=== PATIENT | female | born 1995 | race Caucasian/White ===

== ENCOUNTER 2022-12-12 23:03 | Inpatient (IN) | payer OTHER, SELFPAY ==
--- OUTSIDE RECORDS SUMMARY | 2022-12-12 23:05 | XMS_ITS | Continuity of Care Document ---
Author Name Unknown Organization [facility] ter Address [address] [place] [id number]- Care Team Providers Care Crab Backer Name Role Phone Antonio HOBSON, Ana Laura Flynn Primary Care Physician [phone] [place] [facility] [place] - 07/19/[address] [address]- [facility] Attending Physician: Hannah Concepcion MD Allergies, Adverse Reactions, Alerts Substance Reaction Severity Status NKA Active Immunizations Given and Recorded Vaccine Date Status Refusal Reason Measles/Mumps/Rubella Virus Vaccine 06/10/13 Given tetanus/diphtheria/pertussis, acel(Tdap) 1 05/09/13 Given influenza virus vaccine, inactivated 2 05/09/13 Gi cheryl 1Admin Note: NKA. Vis sheet given to pt. 2Admin Note: Flu Vaccine administered. Given information sheet. Denies any allergies or reaction to flu vaccine in the past. Medications Multivitamin Daily, 0 Refills, Maintenance, 10/15/17 15:47:41 EDT Start Date: 10/15/17 Status: Ordered Valtrex 500 mg oral tablet 500 mg, 1, tablet, By Mouth, Every 12 hours, # 14 tablet, Refills 0, Tot. Refills 0, Maintenance, 05/12/19 7:06:08 EST, Route to Pharmacy Electronically, [id number], [facility]/pharmacy #[id number] Start Date: 05/12/19 Stop Date: 05/19/19 Status: Ordered Problem List Condition Effective Dates Status Health Status Inform ant Contraception(Confirmed) Active Depression(Confirmed) Active Fatigue(Confirmed) Active Herpes simplex without complication(Confirmed) Active Well woman exam with routine gynecological exam(Confirmed) Active Results Microbiology Reports TEST:Group B Strep Culture STATUS:Auth (Verified) BODY SITE: SOURCE:VAGINO COLLECTED DATE/TIME:07/12/19 1:57 PM Group B Strep Culture SPECIMEN DESCRIPTION : VAGINORECTAL SWAB SPECIAL REQUESTS : NONE CULTURE : NO GROUP B BETA HEMOLYTIC STREPTOCOCCI ISOLATED REPORT STATUS : FINAL 07/18/2019 Social History Social History Type Response Smoking Status Former smoker entered on: 05/26/17 Sex
--- OUTSIDE RECORDS SUMMARY | 2022-12-12 23:05 | XMS_ITS | Continuity of Care Document ---
Author Name Unknown Organization [facility] ter Address [address] [place] [id number]- Care Team Providers Care Conduit Worker Name Role Phone Antonio HOBSON, Ana Laura Flynn Primary Care Physician [place] [facility] [place] [place] [id number] Date(s): 07/26/19 - 07/26/[address] [address]- [facility] Discharge Disposition: A-D/C Home Attending Physician: Annalise Romo DO Admitting Physician: Annalise Romo DO Referring Physician: Annalise Romo DO Allergies, Adverse Reactions, Alerts Substance Reaction Severity [...] to flu vaccine in the past. Medications ferrous sulfate 325 mg oral tablet 1 tablet = 325 mg, By Mouth, 3 times a day, 0 Refills, Maintenance, 07/26/19 20:00:00 EST Start Date: 07/26/19 Status: Ordered Multivitamin Daily, 0 Refills, Maintenance, 10/15/17 15:47:41 EDT Start Date: 10/15/17 Status: Ordered Valtrex 500 mg oral tablet 500 mg, 1, tablet, By Mouth, Every 12 hours, # 14 tablet, Refills 0, Tot. Refills 0, Maintenance, 05/12/19 7:06:08 EST, Route to Pharmacy Electronically, [id number], [facility]/pharmacy #[id number] Start Date: 05/12/19 Stop Date: 05/19/19 Status: Ordered Problem List Condition Effective Dates Status Health Status Inform ant Contraception(Confirmed) Active Depression(Confirmed) Active Fatigue(Confirmed) Active Genital herpes simplex(Confirmed) 1 07/26/19 Active H/O: depression(Confirmed) 2 07/26/19 Active Herpes simplex without complication(Confirmed) Active Well woman exam with routine gynecological exam(Confirmed) Active 1Problem added by Discern Expert 2Problem added by Discern Expert Procedures Procedure Date Related Diagnosis Body Site Status Cyst of knee 1 Completed P[place]ear tooth Completed 1side of knee Vital Signs Most recent to oldest [Reference Range]: 1 Height 162 cm (07/26/19 7:55 PM) Blood Pressure [90-138/55-84 mm Hg] 112/ 77mm Hg (07/26/19 7:55 PM) Respiratory Rate [16-30 br/min] 18 br/mi n (07/26/19 7:55 PM) Temperature [96.8-100.4 DegF] 98.1 DegF (07/26/19 7:55 PM) Temperature Route Oral (07/26/19 7:55 PM) Social History Social History Type Response Smoking Status Former smoker entered on: 05/26/17 Sex
--- OUTSIDE RECORDS SUMMARY | 2022-12-12 23:05 | XMS_ITS | Continuity of Care Document ---
Author Name Unknown Organization [facility] ter Address [address] [place] [id number]- Care Team Providers Care Assistant Food Service Manager Name Role Phone Antonio HOBSON, Ana Laura Flynn Primary Care Physician [place] [facility] [place]04[place] - 08/07/[address] [address]- [facility] Discharge Disposition: A-D/C Home Attending Physician: Annalise Romo DO Admitting Physician: Annalise Romo DO Referring Physician: Annalise Romo DO Allergies, Adverse Reactions, Alerts Substance Reaction Severity Status NKA Active Immunizations Given and Recorded Vaccine Date Status Refusal Reason influenza virus vaccine, inactivated 08/05/19 Give n influenza virus vaccine, inactivated 1 05/09/13 Gi cheryl Measles/Mumps/Rubella Virus Vaccine 06/10/13 Given tetanus/diphtheria/pertussis, acel(Tdap) 2 05/09/13 Given 1Admin Note: Flu Vaccine administered. Given information sheet. Denies any allergies or reaction to flu vaccine in the past. 2Admin Note: NKA. Vis sheet given to pt. Medications ferrous sulfate 325 mg oral tablet [...] 05/12/19 7:06:08 EST, Route to Pharmacy Electronically, [id number], [facility]/pharmacy #[id number] Start Date: 05/12/19 Stop Date: 05/19/19 Status: Ordered Problem List Condition Effective Dates Status Health Status Inform ant Contraception(Confirmed) Active Depression(Confirmed) Active Fatigue(Confirmed) Active Genital herpes simplex(Confirmed) 1 07/26/19 Active Herpes simplex without complication(Confirmed) Active Well woman exam with routine gynecological exam(Confirmed) Active 1Problem added by Discern Expert Vital Signs Most recent to oldest [Reference Range]: 1 2 3 Height 163 cm (08/07/19 10:00 AM) 163 cm (08/07/19 10:00 AM) 163 cm (08/07/19 9:00 AM) Weight 78 kg (08/04/19 6:13 PM) 75.4 kg (08/04/19 5:49 PM) Oxygen Saturation [94-100 %] 100 % (08/04/19 7:28 PM) 99 % (08/04/19 7:04 PM) 98 % (08/04/19 6:56 PM) Pulse Rate [55-90 bpm] 75 bpm (08/07/19 10:00 AM) 75 bpm (08/07/19 10:00 AM) 80 bpm (08/07/19 9:00 AM) Body Mass Index [18.5-24.99] 29.36 *H* (08/04/19 6:13 PM) Blood Pressure [90-138/55-84 mm Hg] 112/71mm Hg (08/07/19 10:00 AM) 112/71mm Hg (08/07/19 10:00 AM) 106/70mm Hg (08/07/19 9:00 AM) Respiratory Rate [16-30 br/min] 18 br/min (08/07/19 10:00 AM) 18 br/min (08/07/19 10:00 AM) 16 br/min (08/07/19 9:00 AM) Temperature [96.8-100.4 DegF] 97.6 DegF (08/07/19 10:00 AM) 97.6 DegF (08/07/19 10:00 AM) 98.3 DegF (08/07/19 9:00 AM) Blood pressure sites Arm, right (08/05/19 4:47 PM) Arm, left (08/05/19 9:30 AM) Arm, right (08/04/19 6:13 PM) Temperature Route Oral (08/07/19 10:00 AM) Oral (08/07/19 10:00 AM) Oral (08/07/19 9:00 AM) Dry Weight 78 kg (08/04/19 6:13 PM) Weight Obtained Via Patient/family state d (08/04/19 6:13 PM) Standing scale (08/04/19 5:49 PM) Dry Weight Obtained Via Patient/family s tated (08/04/19 6:13 PM) Sensory deficits None (08/04/19 6:13 PM) Mobility assistance Independent (08/04/19 6:13 PM) Social History Social History Type Response Smoking Status Former smoker entered on: 05/26/17 Sex
[2022-12-13 02:13] VITALS: BMI 21.2
--- NOTE | 2022-12-13 04:14 | PC.ADMIT ---
Piotr Meraz, is a 27yo female admitted from [facility] to the unit, presenting due to unspecified mood disorder; unspecified depressive disorder; PTSD, generalized anxiety disorder and SI. Pt arrived at 23:23, legal status: CV. Provider business control manager, Rubén Norris notified on admissions and orders obtained. pt arrived on stretcher, A+O x4, calm, cooperative, engaging, answered all questions appropriately. pt placed on 15mins safety checks. Pt appeared to be upset with fiance and mum, stating my mum threatened to section me if I did not come to the hospital . My fiance is angry at me because I went out with my friends. According to pt, asher is also upset with her because she broke up with him, father to their 3 kids, of an 8 years relationship. During assessment, Pt reports increased ETOH intake due to depression and stress from her fiance. Pt with no significant medical issues except for psych/alcohol problems. pt reports during assessment, she drinks socially, mostly on Fridays, about 3-4 bottles of beer. CIWA assessment ordered, mild anxiety noted, CIWA score 1 upon assessment. Pt showered. Pt reports feeling safe on unit.
--- NOTE | 2022-12-13 06:04 | PC.ADMIT ---
Pt is a 27yo female admitted to the unit after referral from [facility]. Pt was a hospital to hospital transfer and arrived on unit at 23:11. Legal status: CV. Pt denies any acute medical issues. Pt denies any current substance use but pt reports ETOH use of weekly casual alcohol consumption, however, crisis assessment indicates a long standing alcohol use. Precipitant to admission is pt reported drinking 1L of vodka as well as several beers and planning to drink herself to . Pt also reports to drinking an entire bottle of Delsym cough syrup. Pt reports that she told her fiance that she was going out with friends to drink. Pt stated that her fiance reportedly became upset and contacted members of her family, trying to make her bad and told her that her mother wanted to section her due to her drinking. Pt reports she then voluntarily presented herself to the hospital for evaluation as she did not want DCF involved. According to pt, asher is also upset with her because she broke up with him, father to their 3 kids, of an 8 years relationship. During assessment, pt reports increased ETOH intake due to depression and stress from her fiance. Pt presents as A+O x4, calm, cooperative, engaging, answered all questions appropriately. Provider admissions advisor [place] notified of her admission and orders obtained. Pt placed on 15 mins safety checks. Pt reports feeling safe on the unit.
[2022-12-13 07:56] LABS: Alanine Aminotransferase 9 U/L (0-31); Albumin Level 4.1 g/dL (3.5-5.0); Alkaline Phosphatase 41 U/L (39-117); Anion Gap 11 (12-20); Aspartate Amino Transferase 14 U/L (5-31); Bilirubin Total 1.4 mg/dL (0.0-1.0); Blood Urea Nitrogen 11 mg/dL (9-16); Calcium 9.4 mg/dL (8.4-10.2); Carbon Dioxide 30 mmol/L (22-29); Chloride 103 mmol/L (96-108); Cholesterol 163 mg/dL; Creatinine Clr Calc Pharmacy 95.1; Estimated Glomerular Filt Rate > 60; Glucose Fasting 89 mg/dL (60-99); HDL Cholesterol 74 mg/dL; LDL Cholesterol Calculated 82 mg/dl; Potassium 3.7 mmol/L (3.3-5.1); Sodium 140 mmol/L (135-145); Total Protein 6.6 g/dL (6.5-8.0); Triglycerides 39 mg/dL
[2022-12-13 08:00] VITALS: BP 109/64; PULSE 85; RESP 16; TEMP 36.7; O2SAT 100
[2022-12-13 08:08] LABS: Estimated Average Glucose 82 mg/dL; Hemoglobin A1c % 4.5 %
[2022-12-13 08:11] LABS: Free T4 (Free Thyroxine) 1.07 ng/dL (0.71-1.85); Thyroid Stimulating Hormone 2.32 uIU/mL (0.32-4.0)
[2022-12-13 08:26] LABS: Folate 9.9 ng/mL (> or = 4.0); Vitamin B12 468 pg/mL (200-900)
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
[2022-12-13 20:30] VITALS: BP 112/78; PULSE 84; RESP 18; TEMP 36.4; O2SAT 97
[2022-12-13] MEDS: QUEtiapine Fumarate 25 MG TABLET 12.5 MG PO (22:17)
[2022-12-13] MEDS: Divalproex Sodium Sprinkles 125 MG CAP.DR.SPR PO (22:17)
[2022-12-14 09:05] VITALS: BP 131/74; PULSE 80; RESP 16; TEMP 36.7; O2SAT 97
[2022-12-14] MEDS: Escitalopram Oxalate 20 MG TABLET PO (09:08)
[2022-12-14] MEDS: Divalproex Sodium Sprinkles 125 MG CAP.DR.SPR PO ×2 (09:08→21:45)
[2022-12-14] MEDS: Ondansetron ODT 4 MG TAB.RAPDIS TRANSLINGU (10:46)
--- NOTE | 2022-12-14 16:04 | HO.PSYCHPN ---
Subjective Subjective Date of Service: 12/14/22 Reason For Visit: mood disorder, depression, PTSD, anxiety Interim History: vomited this morning, attributed to lexapro agrees to decrease dose to 10 for now. otherwise will continue previous Tx. per staff, low CIWA scores. had visit from sister this morning. no withdrawal Sx. Mental Status Exam Mental Status Exam Narrative: long fake lashes, attention to personal appearance. well groomed and casually dressed. cooperative. no PMA/PMR. speech nml rate, amount, loudness, tone, latency. thoughts linear and logical. affect full range, normo-intense, non-labile. no SI/HI/AVH expressed. Diagnostics Vital Signs (24Hr): Vital Signs - 24 hr 12/13/22 20:30 12/14/22 09:05 Temperature 97.6 F 98.1 F Pulse Rate 84 80 Respiratory Rate 18 16 Blood Pressure 112/78 131/74 Pulse Oximetry 97 97 Oxygen Delivery Method Room Air Room Air BMI result Body Mass Index 21.2 Labs 12/13/22 07:23 Labs: Laboratory Results - last 48 hr 12/13/22 12/13/22 12/13/22 07:23 07:23 07:23 Sodium 140 Potassium 3.7 Chloride 103 Carbon Dioxide 30 H Anion Gap 11 L BUN 11 Creatinine 0.76 Estim Creat Clear Calc 95.1 Estimated GFR > 60 Fasting Glucose 89 Estimat Average Glucose 82 Hemoglobin A1c % 4.5 Calcium 9.4 Total Bilirubin 1.4 H AST 14 ALT 9 Alkaline Phosphatase 41 Total Protein 6.6 Albumin 4.1 Triglycerides 39 Cholesterol 163 LDL Cholesterol, Calc 82 HDL Cholesterol 74 Vitamin B12 468 Folate 9.9 TSH 2.32 Free T4 1.07 Medications Medications Current Medications Acetaminophen (Acetaminophen 325 Mg Tablet) 650 mg PO Q6H PRN PRN Reason: Headache/Pain Mild Scale (1-3) Al Hydroxide/Mg Hydroxide (Magnesium Hydrox/Alum Hydrox 30 Ml Oral.Susp) 30 ml PO Q6H PRN PRN Reason: Heartburn/Nausea Divalproex Sodium (Divalproex Sodium Sprinkles 125 Mg Dwayne.) 125 mg PO BID [facility] Last Admin: 12/14/22 09:08 Dose: 125 mg Escitalopram Oxalate (Escitalopram Oxalate 10 Mg Tablet) 10 mg PO DAILY [facility] Hydroxyzine HCl (Hydroxyzine Hcl 25 Mg Tablet) 25 mg PO Q6H PRN PRN Reason: Anxiety Lorazepam (Lorazepam 1 Mg Tablet) 1 mg PO Q2H PRN PRN Reason: CIWA 8 - 11 Lorazepam (Lorazepam 1 Mg Tablet) 2 mg PO Q2H PRN PRN Reason: CIWA 12 - 15 Lorazepam (Lorazepam 1 Mg Tablet) 3 mg PO Q2H PRN PRN Reason: CIWA >15; and call MD Magnesium Hydroxide (Milk Of Magnesia 30 Ml Oral.Susp) 30 ml PO DAILY PRN PRN Reason: Constipation Nicotine Polacrilex (Nicotine Polacrilex 2 Mg Gum) 4 mg BUCCAL Q2H PRN PRN Reason: Nicotine Cravings Ondansetron HCl (Ondansetron Odt 4 Mg Tab.Rapdis) 4 mg TRANSLINGU Q6H PRN PRN Reason: Nausea Last Admin: 12/14/22 10:46 Dose: 4 mg Quetiapine Fumarate (Quetiapine Fumarate 25 Mg Tablet) 12.5 mg PO BEDTIME [facility] Last Admin: 12/13/22 22:17 Dose: 12.5 mg Trazodone HCl (Trazodone Hcl 50 Mg Tablet) 50 mg PO BEDTIME MRX1 PRN PRN Reason: Insomnia Allergies Allergies Allergy/AdvReac Type Severity Reaction Status Date / Time No Known Allergies Allergy Unverified 03/08/20 19:06 [No Known Allergies*] Assessment & Plan Assessment & Plan (1) Chronic post-traumatic stress disorder (PTSD): Status: Acute Code(s): F43.12 - Post-traumatic stress disorder, chronic (2) Major depressive disorder: Status: Acute Code(s): F32.9 - Major depressive disorder, single episode, unspecified (3) Alcohol use: Status: Acute Code(s): Z78.9 - Other specified health status Plan citalopram 20 was substituted with escitalopram 10, equivalent dosing. recommended maxing out the anti-depressant, increasing escitalopram to 20 (and therefore citalopram to 40 at discharge). pt c/o excessive sedation with seroquel 25 mg QHS; agreed to decrease dosing to 12.5 mg QHS. continue outpt VPA dosing of 125 mg BID. 12/14: vomited after dose of increased SSRI. return dosing to previous equivalent, 10 mg lexapro. Reason for continued inpatient stay Substantial Risk for: harm to self, inability to function and rapid decompensation Time Spent With Patient Time: Total time managing care of this patient today ____ minutes.
[2022-12-14 18:00] VITALS: BP 116/77; PULSE 73; RESP 18; TEMP 36.6; O2SAT 96
[2022-12-15 08:11] VITALS: BP 110/59; PULSE 75; RESP 16; TEMP 36.4; O2SAT 98
[2022-12-15] MEDS: Escitalopram Oxalate 10 MG TABLET PO (08:12)
[2022-12-15] MEDS: Divalproex Sodium Sprinkles 125 MG CAP.DR.SPR PO ×2 (08:12→21:54)
--- NOTE | 2022-12-15 15:29 | P.PNPSI_ITS ---
Subjective Subjective Date of Service: 12/15/22 Reason For Visit: mood disorder, depression, PTSD, anxiety Subjective Notes: [place] Warning Interim History: calm, cooperative, pleasant. amenable to increase lexapro to 15 mg as of tomorrow. 3-day up wed, planning to discharge. still no alcohol withdrawal Sx, CIWA DCed. per staff, good appetite. social. no SI/HI/AVH. flat, anxious, depressed. sleeping OK. refused seroquel last NOC, slept well. Mental Status Exam Mental Status Exam Narrative: long fake lashes, attention to personal appearance. well groomed and casually dressed. cooperative. no PMA/PMR. speech nml rate, amount, loudness, tone, latency. thoughts linear and logical. affect full range, normo-intense, non- labile. no SI/HI/AVH expressed. Diagnostics Vital Signs (24Hr): Vital Signs - 24 hr 12/14/22 18:00 12/15/22 08:11 Temperature 98 F 97.6 F Pulse Rate 73 75 Respiratory Rate 18 16 Blood Pressure 116/77 110/59 L Pulse Oximetry 96 98 Oxygen Delivery Method Room Air Room Air BMI result Body Mass Index 21.2 Labs 12/13/22 07:23 Medications Medications Current Medications Acetaminophen (Acetaminophen 325 Mg Tablet) 650 mg PO Q6H PRN PRN Reason: Headache/Pain Mild Scale (1-3) Al Hydroxide/Mg Hydroxide (Magnesium Hydrox/Alum Hydrox 30 Ml Oral.Susp) 30 ml PO Q6H PRN PRN Reason: Heartburn/Nausea Divalproex Sodium (Divalproex Sodium Sprinkles 125 Mg ) 125 mg PO BID [facility] Last Admin: 12/15/22 08:12 Dose: 125 mg Escitalopram Oxalate (Escitalopram Oxalate 5 Mg Tablet) 15 mg PO DAILY [facility] Hydroxyzine HCl (Hydroxyzine Hcl 25 Mg Tablet) 25 mg PO Q6H PRN PRN Reason: Anxiety Magnesium Hydroxide (Milk Of Magnesia 30 Ml Oral.Susp) 30 ml PO DAILY PRN PRN Reason: Constipation Nicotine Polacrilex (Nicotine Polacrilex 2 Mg Gum) 4 mg BUCCAL Q2H PRN PRN Reason: Nicotine Cravings Ondansetron HCl (Ondansetron Odt 4 Mg Tab.Rapdis) 4 mg TRANSLINGU Q6H PRN PRN Reason: Nausea Last Admin: 12/14/22 10:46 Dose: 4 mg Quetiapine Fumarate (Quetiapine Fumarate 25 Mg Tablet) 12.5 mg PO BEDTIME [facility] Last Admin: 12/14/22 21:45 Dose: Not Given Trazodone HCl (Trazodone Hcl 50 Mg Tablet) 50 mg PO BEDTIME MRX1 PRN PRN Reason: Insomnia Allergies Allergies Allergy/AdvReac Type Severity Reaction Status Date / Time No Known Allergies Allergy Unverified 03/08/20 19:06 [No Known Allergies*] Assessment & Plan Assessment & Plan (1) Chronic post-traumatic stress disorder (PTSD): Status: Acute Code(s): F43.12 - Post-traumatic stress disorder, chronic (2) Major depressive disorder: Status: Acute Code(s): F32.9 - Major depressive disorder, single episode, unspecified (3) Alcohol use: Status: Acute Code(s): Z78.9 - Other specified health status Plan citalopram 20 was substituted with escitalopram 10, equivalent dosing. MD recommended maxing out the anti-depressant, increasing escitalopram to 20 (and therefore citalopram to 40 at discharge). pt c/o excessive sedation with seroquel 25 mg QHS; agreed to decrease dosing to 12.5 mg QHS. continue outpt VPA dosing of 125 mg BID. 12/14: vomited after dose of increased SSRI. return dosing to previous equivalent, 10 mg lexapro. 12/15: tolerated 10 mg today, increasing to 15 mg tomorrow. 3-day up wed. stable, expressive, but reports depressed. Reason for continued inpatient stay Substantial Risk for: inability to function and rapid decompensation Time Spent With Patient Time: Total time managing care of this patient today _25___ minutes.
[2022-12-15 20:32] VITALS: BP 123/86; PULSE 81; RESP 16; TEMP 36.6; O2SAT 98
[2022-12-16] MEDS: Escitalopram Oxalate 5 MG TABLET 15 MG PO (08:18)
[2022-12-16] MEDS: Divalproex Sodium Sprinkles 125 MG CAP.DR.SPR PO ×2 (08:18→21:18)
[2022-12-16 08:20] VITALS: BP 106/66; PULSE 71; RESP 18; TEMP 36.7; O2SAT 99
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
[2022-12-16 19:40] VITALS: BP 107/72; PULSE 76; RESP 16; TEMP 36.4; O2SAT 99
[2022-12-16] MEDS: QUEtiapine Fumarate 25 MG TABLET 12.5 MG PO (21:16)
[2022-12-17 06:00] VITALS: BP 96/62; PULSE 85; RESP 18; TEMP 36.7; O2SAT 99
[2022-12-17] MEDS: Escitalopram Oxalate 5 MG TABLET 15 MG PO (08:57)
[2022-12-17] MEDS: Divalproex Sodium Sprinkles 125 MG CAP.DR.SPR PO (08:57)
--- NOTE | 2022-12-17 14:10 | PC.ADMIT ---
1410 Pt ready and aware of discharge, She denies SI/HI/AH/VH at this time. Discharge instructions, to include medications and Pt knows to make an appointment with PCP and Therapist. Pt will be staying with her Grandmother who she reports is good support Pt received her belongings back and signed for them. Grandmother will be picking her up at approx 1415.
== END 2022-12-17 14:10 | disposition home or self-care (01) | DRG 754 ==
PROVIDERS: Admitting Provider Psychiatry & Neurology Psychiatry; Visit Provider Psychiatry & Neurology Psychiatry
DX: F32.9 Major depressive disorder, single episode, unspecified (principal); R45.851 Suicidal ideations; F10.90 Alcohol use, unspecified, uncomplicated; F43.12 Post-traumatic stress disorder, chronic; Z91.52 Personal history of nonsuicidal self-harm; Z79.899 Other long term (current) drug therapy
CPT/HCPCS: 36415; 80053; 80061; 82607; 82746; 83036; 84439; 84443